=== PATIENT | male | born 1960 | race Caucasian/White ===

== ENCOUNTER 2024-07-05 12:36 | Outpatient (CLI) | payer MEDICAID ==
--- NOTE | 2024-07-05 18:20 | RADIOLOGY REPORT ---
CLINICAL INDICATION: PAIN IN RIGHT KNEE TECHNIQUE: Noncontrast CT of the right knee was performed. Sagittal and coronal reformatted images ar e provided. COMPARISON: None CT Dose: CTDI volume is 16.8 mGy. Dose-length product is 537.5 mGy*cm FINDINGS: No fracture or dislocation. Joint spaces are maintained. There are osteophytes along the medial and lateral tibial eminence in the inner aspect of the medial femoral condyle, as well as the lateral asp ect of the lateral femoral condyle. Patellofemoral and femorotibial alignment is maintained. Arising from the posterior aspect of the proximal fibula is a 2.1 by 1.1 by 0.7 cm bone lesion which is contiguous with the medullary and cortical bone. There is a knee joint effusion. There are multiple varicose veins. Regional muscles are normal in bulk and attenuation with preservation of the fascial planes. Mild pre patellar soft tissue edema. IMPRESSION: 1. 2.1 cm bone lesion arising from the posterior proximal fibula consistent with a sessile osteochond aidan. 2. Mild degenerative changes in the knee. No acute osseous abnormality. 3. Mild prepatellar soft tissue edema. All CT scans at this medical facility are performed using dose modulation techniques as appropriate t o a performed exam including the following: Automated exposure control was utilized; adjustment of th e MA and/or KV according to patient size; and use of iterative reconstruction technique.
== END 2024-07-05 23:59 | disposition home or self-care (01) ==
LOC: RAD 12:36
PROVIDERS: ATTEND Nurse Practitioner
DX: M17.11 Unilateral primary osteoarthritis, right knee (principal); M25.461 Effusion, right knee; M25.761 Osteophyte, right knee; R60.0 Localized edema; M25.561 Pain in right knee
CPT/HCPCS: 73700